=== PATIENT | female | born 2000 | race Caucasian/White ===

== ENCOUNTER 2020-01-03 03:50 | Emergency (ER) | payer BC ==
[~2020-01-03] VITALS: Ht 170.2 cm; Wt 56.8 kg
[2020-01-03 04:12] VITALS: BP 108/39
[2020-01-03] MEDS ORDERED: ondansetron 4mg rapidly disintigrating tab PO ONE (04:20)
--- NOTE | 2020-01-03 04:21 | NUR ---
she came in because her boyfriend had read online and was worried about a torsion of ovary
[2020-01-03 04:31] LABS: CLARITY,URINE CLOUDY (Clear); COLOR,URINE YELLOW (Yellow); GLUCOSE, URINE NEGATIVE (Neg); KETONES,URINE NEGATIVE (Neg); LEUKOCYTE ESTERASE ,URINE NEGATIVE (Neg); NITRITES, URINE NEGATIVE (Neg); OCCULT BLOOD,URINE NEGATIVE (Neg); PROTEIN,URINE NEGATIVE (Neg); UROBILINOGEN,URINE 0.2 E.U/dL (0.2-1.0)
[2020-01-03 04:32] LABS: URINE HCG NEGATIVE (NEG)
[2020-01-03 04:37] LABS: UA COLLECTION TYPE CLN CATCH MIDSTREAM
[2020-01-03 04:40] LABS: AMORPHOUS PHOSPHATES 4+; BACTERIA,URINE NONE SEEN /HPF (Neg); MUCUS STRANDS FEW /LPF (Neg); RBC,URINE NONE SEEN /HPF (0-2); SQUAMOUS EPITHELIAL CELL,UR FEW /LPF (FEW); WBC,URINE NONE SEEN /HPF (0-4)
[2020-01-03] MEDS ORDERED: ONDA4TAB6 PO (04:45)
== END 2020-01-03 04:56 | disposition home or self-care (01) ==
LOC: ER 03:50
DX: R10.32 Left lower quadrant pain (principal); R11.10 Vomiting, unspecified; F17.200 Nicotine dependence, unspecified, uncomplicated; Z88.1 Allergy status to other antibiotic agents
CPT/HCPCS: 81001; 81025; 99283